=== PATIENT | male | born 1965 | race African-American/Black ===

== ENCOUNTER 2024-02-26 07:55 | Day surgery (SDC) | payer BC ==
[2024-02-25 12:01] VITALS: BMI 24.8
== END 2024-02-26 11:22 | disposition home or self-care (01) ==
LOC: CSHSDC 07:55
PROVIDERS: ATTEND Internal Medicine Gastroenterology
PROC: 0DJD8ZZ Inspection of Lower Intestinal Tract, Via Natural or Artificial Opening Endoscopic (ICD-10-PCS; principal; 2024-02-26)
DX: Z12.11 Encounter for screening for malignant neoplasm of colon (principal); M19.90 Unspecified osteoarthritis, unspecified site; E55.9 Vitamin D deficiency, unspecified; K51.90 Ulcerative colitis, unspecified, without complications